=== PATIENT | male | born 1945 | race Caucasian/White ===

== ENCOUNTER 2016-10-04 07:33 | Emergency (ER) | payer MEDICARE, BC ==
[~2016-10-04] VITALS: Ht 177.8 cm; Wt 104.5 kg
[~2016-10-04 07:33] MED LIST: ADVAIR IH; ALLEGRA 180MG180 MG PO; ALLEGRA60 MG PO; COZAAR 25MG25 MG/TAB PO; EPA FISH OIL1000 MG PO; FLOMAX 0.40.4 MG/CAP PO; FLOMAX0.4 MG PO; GLUCOPHAGE XR500 M1 PO; LEVAQUIN 5500 MG/TAB PO; METFORMIN500 MG PO; METRONIDAZOLE500 MG PO; NEXIUM 20MG CAP20 MG PO; PERCOCET 325 MG1 TA2 PO; PHENERGAN 25 TA25 MG PO; POTASSIUM75 MG PO; PRILOSEC 20MG20 MG PO; REGLAN 10MG10 MG/TAB PO; SIMCOR 500 MG-21 TER PO; SINGULAIR10 MG PO; SUDAFED30 MG PO; VASOTEC10 MG PO; VICTOZA6 MG/ML SC
[2016-10-04 07:38] VITALS: BP 149/79; PULSE 64; TEMP 94.5
[2016-10-04 08:29] LABS: BASO % 0.5 % (0.0-2.0); EOS # 0.1 (0.0-0.7); EOS % 1.3 % (0-4.0); GRAN # 6.4 (1.4-6.5); GRAN % 82.1 % (42.2-75.2); HEMATOCRIT 41.1 % (42.0-52.0); LYMPH # 0.7 (1.2-3.4); LYMPH % 8.6 % (20.0-51.0); MEAN CELL VOLUME 87 fl (80.0-100.0); MEAN CORPUSCULAR HEMOGLOBIN 30 pg (27.0-31.0); MEAN CORPUSCULAR HGB CONC 34 g/dl (33.0-37.0); MEAN PLATELET VOLUME 11.4 fl (7.4-10.4); MONO # 0.6 (0.1-0.6); PLATELET COUNT 188 K/mm3 (130-400); REDCELL DISTRIBUTION WIDTH-CV 12.9 % (11.5-14.5); WHITE BLOOD COUNT 7.8 K/mm3 (4.8-10.8)
[2016-10-04 08:51] LABS: ADJUSTED CALCIUM 9.5 mg/dL (8.4-10.2); BILIRUBIN,TOTAL 1.5 mg/dL (0.0-1.0); CALCIUM 9.5 mg/dL (8.4-10.2); CREATININE, serum 0.8 mg/dL (0.66-1.25); POTASSIUM 4.2 mmol/L (3.4-5.0); TOTAL PROTEIN 6.6 gm/dL (6.4-8.2)
[2016-10-04 08:53] LABS: PARTIAL THROMBOPLASTIN TIME 32.6 SECONDS (26.0-37.0)
[2016-10-04 09:22] LABS: INR 1.2 (0.8-3.0); PROTHROMBIN TIME 13.3 SECONDS (9.7-12.8)
== END 2016-10-04 10:45 | disposition home or self-care (01) ==
LOC: COL.ER 07:33
PROVIDERS: Emergency Medicine
DX: Z02.89 Encounter for other administrative examinations (principal)
CPT/HCPCS: J7040

== ENCOUNTER 2016-10-04 14:40 | Inpatient (IN) | payer MEDICARE, BC ==
[~2016-10-04] VITALS: Ht 177.8 cm; Wt 104.5 kg
[2016-10-04 15:16] LABS: BASO % 0.4 % (0.0-2.0); EOS # 0.1 (0.0-0.7); EOS % 1.5 % (0-4.0); GRAN # 6.1 (1.4-6.5); GRAN % 73.7 % (42.2-75.2); HEMATOCRIT 38.8 % (42.0-52.0); HEMOGLOBIN 13.4 g/dl (13.5-18.0); LYMPH # 1.3 (1.2-3.4); LYMPH % 15.4 % (20.0-51.0); MEAN CELL VOLUME 86 fl (80.0-100.0); MEAN CORPUSCULAR HEMOGLOBIN 30 pg (27.0-31.0); MEAN CORPUSCULAR HGB CONC 35 g/dl (33.0-37.0); MEAN PLATELET VOLUME 11.3 fl (7.4-10.4); MONO # 0.7 (0.1-0.6); MONO % 8.8 % (1.7-9.3); PLATELET COUNT 221 K/mm3 (130-400); RED BLOOD COUNT 4.49 M/mm3 (4.20-5.60); REDCELL DISTRIBUTION WIDTH-CV 12.7 % (11.5-14.5); WHITE BLOOD COUNT 8.3 K/mm3 (4.8-10.8)
[2016-10-04 15:27] LABS: CALCIUM 9.5 mg/dL (8.4-10.2); CREATININE, serum 0.76 mg/dL (0.66-1.25)
[2016-10-04 16:51] VITALS: BP 131/74; PULSE 58
[2016-10-04 19:53] VITALS: BP 134/69; PULSE 86; TEMP 97.5
[2016-10-04 21:09] LABS: HEMOGLOBIN 12.3 g/dl (13.5-18.0)
[2016-10-04 21:29] LABS: HEMATOCRIT 36.3 % (42.0-52.0)
[2016-10-05] VITALS (7 sets, daily range): BP systolic 98–144; BP diastolic 39–95; PULSE 49–64; TEMP 97.4–98.6
[2016-10-05 06:08] LABS: HEMATOCRIT 32.2 % (42.0-52.0); HEMOGLOBIN 10.9 g/dl (13.5-18.0)
[2016-10-05 13:04] LABS: HEMOGLOBIN 9.4 g/dl (13.5-18.0)
[2016-10-05 20:33] LABS: HEMATOCRIT 27.2 % (42.0-52.0); HEMOGLOBIN 9.3 g/dl (13.5-18.0)
[2016-10-06 05:11] VITALS: BP 116/45; PULSE 63; TEMP 98.1
[2016-10-06 07:35] LABS: HEMOGLOBIN 8.7 g/dl (13.5-18.0)
[2016-10-06 10:26] VITALS: BP 136/51; PULSE 52; TEMP 97.5
[2016-10-06 12:37] LABS: HEMATOCRIT 29.8 % (42.0-52.0); HEMOGLOBIN 10.3 g/dl (13.5-18.0)
[2016-10-06 14:13] VITALS: BP 132/57; PULSE 55; TEMP 97.4
== END 2016-10-06 15:34 | disposition home or self-care (01) | DRG 921 ==
LOC: COL.ER 14:40 → JCC 15:16
PROVIDERS: Emergency Medicine; Internal Medicine Gastroenterology; Surgery
DX: K91.840 Postprocedural hemorrhage of a digestive system organ or structure following a digestive system procedure (principal); I10 Essential (primary) hypertension; E11.9 Type 2 diabetes mellitus without complications
CPT/HCPCS: A9284; G0378; J7030; J7040

== ENCOUNTER 2017-02-22 23:10 | Emergency (ER) | payer MEDICARE, BC ==
[~2017-02-22] VITALS: Ht 177.8 cm; Wt 90.9 kg
[2017-02-22 23:12] VITALS: BP 162/74; TEMP 98
[2017-02-23 01:18] VITALS: PULSE 68
== END 2017-02-23 01:20 | disposition home or self-care (01) ==
LOC: COL.ER 23:10
DX: S01.312A Laceration without foreign body of left ear, initial encounter (principal); W22.8XXA Striking against or struck by other objects, initial encounter; Y92.007 Garden or yard of unspecified non-institutional (private) residence as the place of occurrence of the external cause; E11.9 Type 2 diabetes mellitus without complications; J45.909 Unspecified asthma, uncomplicated; I10 Essential (primary) hypertension; Z79.84 Long term (current) use of oral hypoglycemic drugs

== ENCOUNTER 2017-02-28 15:33 | Emergency (ER) | payer MEDICARE, BC ==
[2017-02-28 15:52] VITALS: BP 161/70; PULSE 55; TEMP 97.8
== END 2017-02-28 16:09 | disposition home or self-care (01) ==
LOC: COL.ER 15:33
DX: S01.312D Laceration without foreign body of left ear, subsequent encounter (principal); X58.XXXD Exposure to other specified factors, subsequent encounter